=== PATIENT | male | born 1955 | race Caucasian/White ===

== ENCOUNTER 2017-06-01 12:05 | Emergency (ER) | payer OTHER ==
[2017-06-01] MEDS ORDERED: Diphtheria,Pertussis(Acell),Tetanus Vaccine 0.5 ML SDV IM ONE (13:07)
--- NOTE | 2017-06-01 13:15 | EDM.PDOC ---
ED HPI GENERAL MEDICAL PROBLEM - General Chief Complaint: Lower Extremity Injury/Pain Stated Complaint: FOOT LACERATION Time Seen by Provider: 06/01/17 12:50 Source of Information: Reports: Patient History Limitations: Reports: No Limitations - History of Present Illness INITIAL COMMENTS - FREE TEXT/NARRATIVE: Patient presents with puncture in top of left foot that occurred 40 minutes before ER arrival. Pt works with an [employer] and was using a post- pounder type device driving an 18-inch spike into the ground for running tests. When pulling it back out of the ground it came suddenly and dropped back down on the top of his foot going through the top of his heavy leather work boot just behind the steel-toed front. He can raise and lower all the toes and denies any numbness. He doesn't think it hit bone. He isn't sure of last tetanus and is okay with update today. 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 He [place] of [place] and plans to drive back home today so doesn't want anything strong for pain meds. Pain is 4/10 currently. Left Feet Pain Score (Numeric/FACES): 4 - Related Data Allergies Allergy/AdvReac Type Severity Reaction Status Date / Time azathioprine Allergy Cannot Verified 06/01/17 12:37 Remember infliximab Allergy Cannot Verified 06/01/17 12:37 Remember Iodinated Contrast- Oral and Allergy Hives Verified 06/01/17 12:37 IV Dye povidone-iodine Allergy Rash Verified 06/01/17 12:30 [From Betadine] soap [From Betadine] Allergy Rash Verified 06/01/17 12:30 sulfamethoxazole Allergy Lightheaded Verified 06/01/17 12:37 [From Bactrim] ness trimethoprim [From Bactrim] Allergy Lightheaded Verified 06/01/17 12:37 ness Home Meds: Home Meds Adalimumab [Humira] 40 mg SQ ASDIRECTED 06/01/17 [History] Cholecalciferol (Vitamin D3) [Vitamin D3] 1,000 units PO DAILY 06/01/17 [History ] Folic Acid 1 mg PO DAILY 06/01/17 [History] Insulin Degludec [Tresiba Flextouch U-100] 30 units SQ DAILY 06/01/17 [History] Methotrexate Sodium [Methotrexate] 25 mg IM WEEKLY 06/01/17 [History] Multivitamin with Minerals [Multiple Vitamin] 1 tab PO DAILY 06/01/17 [History] atorvaSTATin [Lipitor] 20 mg PO BEDTIME 06/01/17 [History] Social & Family History - Tobacco Use Smoking Status *Q: Never Smoker - Caffeine Use Caffeine Use: Reports: Coffee, Energy Drinks - Recreational Drug Use Recreational Drug Use: No Review of Systems - Review of Systems Review Of Systems: See Below Constitutional: Denies: Chills, Diaphoresis, Fever, Weakness Eyes: Denies: Vision Change Ears: Denies: Dizziness Nose: Reports: No Symptoms Mouth/Throat: Reports: No Symptoms Respiratory: Denies: Shortness of Breath, Cough Cardiovascular: Denies: Chest Pain, Lightheadedness, Syncope GI/Abdominal: Denies: Abdominal Pain, Nausea, Vomiting Genitourinary: Reports: No Symptoms Musculoskeletal: Denies: Neck Pain, Shoulder Pain Skin: Denies: Cyanosis, Jaundice, Mottled, Pallor, Diaphoresis Neurological: Denies: Confusion, Dizziness, Numbness, Seizure, Syncope, Trouble Speaking, Difficulty Walking (walked on it right away) Psychiatric: Denies: Confusion ED EXAM, GENERAL - Physical Exam Exam: See Below Exam Limited By: No Limitations General Appearance: Alert, WD/WN, No Apparent Distress Eye Exam: Bilateral Eye: EOMI, Normal Inspection, PERRL Ears: Normal External Exam, Hearing Grossly Normal Nose: Normal Inspection, No Blood Throat/Mouth: Normal Inspection, Normal Lips, Normal Voice, No Airway Compromise Head: Atraumatic, Normocephalic Neck: Normal Inspection, Full Range of Motion Respiratory/Chest: No Respiratory Distress, Lungs Clear, Normal Breath Sounds, No Accessory Muscle Use Cardiovascular: Regular Rate, Rhythm, No Murmur GI/Abdominal: No Distention Extremities: Normal Range of Motion, No Pedal Edema, Normal Capillary Refill, Other (Left dorsal foot between 1st and 2nd metatarsals 2 cm proximal to MTP joints there is a 3 cm laceration that is gaping moderately. Distal CMS is intact completely.) Neurological: Alert, Oriented, Normal Cognition, No Motor/Sensory Deficits Psychiatric: Normal Affect, Normal Mood Skin Exam: Warm, Dry, Normal Color, No Rash ED TRAUMA EXTREMITY PROCEDURES - Laceration/Wound Repair Left Distal Dorsal Foot Lac/Wound Length In cm: 3 (wound track went from the dorsal to the plantar surface but not through between the 1st and 2nd metatarsals.) Appearance: Mildly Contaminated Distal NVT: Neuro & Vascular Intact, No Tendon Injury Anesthetic Type: Local Local Anesthesia - Lidocaine (Xylocaine): 2% with EPI Local Anesthetic Volume: Other (10cc) Skin Prep: Chlorhexidine (Hibiciens) Saline Irrigation (cc's): 500 Exploration/Debridement/Repair: Wound Explored, Foreign Material Removed Suture Size: 4-0 # of Sutures: 9 Suture Type: Nylon, Interrupted, Simple Sterile Dressing Applied: Nurse Tetanus Status Addressed: Yes Complications: No Course - Vital Signs Last Recorded V/S: Last Vital Signs Temp 97.7 F 06/01/17 12:23 Pulse 91 06/01/17 12:23 Resp 16 06/01/17 12:23 BP 134/87 06/01/17 12:23 Pulse Ox 94 L 06/01/17 12:23 - Orders/Labs/Meds Orders: Active Orders 24 hr Category Date Time Status Vaccines to be Administered [RC] PER UNIT ROUTINE Care 06/01/17 13:07 Ordered Foot Comp Min 3V Lt [CR] Stat Exams 06/01/17 12:31 Taken Meds: Medications Discontinued Medications Generic Name Dose Route Start Last Admin Trade Name Ross PRN Reason Stop Dose Admin Cephalexin 750 mg 06/01/17 14:13 06/01/17 14:19 Keflex PO 06/01/17 14:14 750 mg ONETIME ONE Administration Cephalexin 500 mg 06/01/17 14:15 06/01/17 14:20 Keflex PO 06/01/17 14:16 Not Given ONETIME ONE Diphtheria/Tetanus/Acell Pertussis 0.5 ml 06/01/17 13:07 06/01/17 13:12 Adacel IM 06/01/17 13:08 0.5 ml .ONCE ONE Administration Lidocaine/Epinephrine Confirm 06/01/17 13:17 06/01/17 14:14 Xylocaine-Mpf 2%-Epi 1:200,000 Administered 06/01/17 13:18 Not Given Dose 20 ml .ROUTE .STK-MED ONE Lidocaine/Epinephrine 10 ml 06/01/17 13:30 06/01/17 14:14 Xylocaine-Mpf 2%-Epi 1:200,000 SUBCUT 06/01/17 13:31 10 ml ONETIME ONE Administration Neomycin/Polymyxin/Bacitracin Confirm 06/01/17 14:04 06/01/17 14:14 Triple Antibiotic Oint Administered 06/01/17 14:05 Not Given Dose 2 each .ROUTE .STK-MED ONE Neomycin/Polymyxin/Bacitracin 1 each 06/01/17 14:12 06/01/17 14:15 Triple Antibiotic Oint TOP 06/01/17 14:13 1 each ONETIME ONE Administration - Re-Assessments/Exams Free Text/Narrative Re-Assessment/Exam: 06/01/17 14:27 Xrays show no evidence of fracture or foreign body. Foot was soaked for 20 minutes in hibiclens solution, anesthetized with 10cc of lidocaine/epi, explored for visible debris, irrigated with 500cc of sterile NS uring an angiocath to flush out from the bottom of the wound, closing with 9 nylon 4-0 sutures, treated with bacitracin and covered with sterile dressings. Sterile technique was used throughout. A few small flecks of dirt were found superficially in the wound and removed with a forceps prior to irrigation. No other evidence of foreign bodies or debris. Discussed findings, expectations and treatment plan with patient and he was discharged in stable condition. Departure - Departure Time of Disposition: 14:16 Disposition: Home, Self-Care 01 Condition: Good Clinical Impression: Puncture wound of foot excluding toes without complication Qualifiers: Encounter type: initial encounter Laterality: left Qualified Code(s): S91.332A - Puncture wound without foreign body, left foot, initial encounter - Discharge Information Referrals: PCP,Not In Area [Primary Care Provider] - Forms: ED Department Discharge Additional Instructions: 1. Keep wound clean and dry, except may clean in shower or soak in fresh foot bath after showering if desired. 2. Take the antibiotic as directed. 3. Watch for signs of infection, including redness, pus, increasing pain or swelling, fever. Recheck with your PCP or ER SUE if present. 4. You may put weight on foot as tolerated. 5. Follow up with your PCP in ten days for suture removal. - My Orders Last 24 Hours: My Active Orders 06/01/17 12:31 Foot Comp Min 3V Lt [CR] Stat 06/01/17 13:07 Vaccines to be Administered [RC] PER UNIT ROUTINE - Assessment/Plan Last 24 Hours: My Active Orders 06/01/17 12:31 Foot Comp Min 3V Lt [CR] Stat 06/01/17 13:07 Vaccines to be Administered [RC] PER UNIT ROUTINE
[2017-06-01] MEDS ORDERED: Lidocaine 2% with EPINEPHrine 1:200,000 20 ML SDV ONE (13:17)
[2017-06-01] MEDS ORDERED: Lidocaine 2% with EPINEPHrine 1:200,000 20 ML SDV SUBCUT ONE (13:30)
[2017-06-01] MEDS ORDERED: Bacitracin/Neomycin/Polymyxin B Oint 0.9 GM U/D Packet ONE (14:04)
[2017-06-01] MEDS ORDERED: Bacitracin/Neomycin/Polymyxin B Oint 0.9 GM U/D Packet TOP ONE (14:12)
[2017-06-01] MEDS ORDERED: Cephalexin 250 MG Cap PO ONE ×2 (14:13→14:15)
== END 2017-06-01 14:30 | disposition home or self-care (01) ==
LOC: KA.ED 12:05 → EDBD 12:05 → KA.ED 14:30
DX: S91.332A Puncture wound without foreign body, left foot, initial encounter (principal); Z88.8 Allergy status to other drugs, medicaments and biological substances; Z91.041 Radiographic dye allergy status; Z88.1 Allergy status to other antibiotic agents; Z88.2 Allergy status to sulfonamides; Z79.899 Other long term (current) drug therapy; W20.8XXA Other cause of strike by thrown, projected or falling object, initial encounter; Y93.89 Activity, other specified; Y99.0 Civilian activity done for income or pay; E11.9 Type 2 diabetes mellitus without complications; Z79.4 Long term (current) use of insulin; Z23 Encounter for immunization
CPT/HCPCS: 12002; 73630; 90471; 90715; 99283; A9270